=== PATIENT | female | born 1940 | race African-American/Black ===

== ENCOUNTER 2018-07-05 12:13 | Inpatient (IN) | payer MEDICARE ==
--- NOTE | 2018-07-05 12:45 | RAD ---
CHEST ONE VIEW: History: 77-year-old female with history of chest pain, dizziness, swelling, and headache. FINDINGS: Left ICD. Heart size is within upper range of normal limits to minimally enlarged. No confluent pneum onia, overt edema or pleural effusion. IMPRESSION: Left ICD. Minimal cardiomegaly without overt edema or confluent pneumonia. POS: T[facility]
[2018-07-05 13:17] LABS: #Basophils 0.1 thou/uL (0.0-0.2); #Eosinphils 0.2 thou/uL (0.0-0.7); #Lymphocytes 1.8 thou/uL (1.20-3.40); #Monocytes 0.4 thou/uL (0.11-0.59); #Neutrophils 3.8 thou/uL (1.40-6.50); %Basophils 1.1 % (0.0-1.0); %Eosinophils 3.4 % (0.0-10.0); %Lymphocytes 28.5 % (21.0-51.0); %Monocytes 6.6 % (0.0-10.0); %Neutrophils 60.5 % (42.0-75.0); Hemoglobin 12.7 g/dL (12.0-16.0); Mean Corpuscular HGB CONC 31.6 g/dL (32.0-36.0); Mean Corpuscular Hemoglobin 27.2 pg (27.0-31.0); Mean Corpuscular Volume 86.1 fL (78.0-98.0); Mean Platelet Volume 8.6 fL (7.4-10.4); Platelet Count 236 thou/uL (130-400); RBC Distribution Width 14.2 % (11.5-14.5); Red Blood Cell (RBC) Count 4.66 mill/uL (4.20-5.40); White Blood Cell (WBC) Count 6.3 thou/uL (4.8-10.8)
[2018-07-05 13:40] LABS: ALT (SGPT) 12 U/L (8-55); AST (SGOT) 16 U/L (5-34); Albumin 3.9 g/dL (3.4-4.8); Alkaline Phosphatase 84 U/L (40-150); Anion Gap 14 mmol/L (10-20); BUN (Urea Nitrogen) 22 mg/dL (9.8-20.1); Bilirubin, Total 0.8 mg/dL (0.2-1.2); CK (CPK) 97 U/L (29-168); Calc. Creatinine Clearance 0 mL/min (70-130); Calcium 9.4 mg/dL (7.8-10.44); Carbon Dioxide 25 mmol/L (23-31); Chloride 106 mmol/L (98-107); Estimated GFR-MDRD 50; Globulin 3.4 g/dL (2.4-3.5); Glucose 124 mg/dL (83-110); Potassium 4.5 mmol/L (3.5-5.1); Protein, Total 7.3 g/dL (6.0-8.3); Sodium 140 mmol/L (136-145)
[2018-07-05] MEDS ORDERED: Nitroglycerin 2% Ointment 1 INCH/1 GM Packet ONE (13:40)
[2018-07-05] MEDS ORDERED: Aspirin 325 MG TAB ONE (13:40)
[2018-07-05 13:45] LABS: CKMB 1.7 ng/mL (0-6.6); Troponin I Less than 0.010 ng/mL (< 0.028)
[2018-07-05 14:16] LABS: INR-International Normal Ratio 1.7; Prothrombin Time 20.1 SEC (12.0-14.7)
[2018-07-05 14:17] LABS: PTT 37.7 SEC (22.9-36.1)
[2018-07-05 16:39] LABS: Troponin I Less than 0.010 ng/mL (< 0.028)
--- NOTE | 2018-07-05 16:39 | HP ---
DATE OF ADMISSION: 07/05/2018 PRIMARY CARE PHYSICIAN: [facility] call admission. REASON FOR ADMISSION: Chest pain. HISTORY OF PRESENT ILLNESS: A 77-year-old female who has multiple medical problems including diabetes type 2, hypertension, chronic diastolic heart failure, paroxysmal atrial fibrillation treated with pacemaker as well as on chronic anticoagulation for previous history of deep venous thrombosis and pulmonary embolism. The patient presented to emergency room for evaluation of chest pain. The patient reports that recently she had an appointment for eye surgery. At that time, the patient had EKG done, which showed some abnormality and that is why her primary care physician advised to follow up with Cardiology. For the last couple of months, the patient has intermittently chest pain, which is pretty much vague. Based on her history, it is left sided in location, sometimes radiates to left arm, associated with shortness of breath, dizziness. She denies any vomiting, but she feels intermittently nausea. She also reports that her lower extremity is getting edema. She denies any calf tenderness. She denies any relation of chest pain with food, respiration or activity. Today in the emergency room, the patient had routine evaluation with a CBC, BMP , which was unremarkable. Cardiac enzymes were negative. EKG was nonspecific ST-T changes. The patient is being admitted for further evaluation. ALLERGIES: IODINE and IODINATED PRODUCT. CURRENT HOME MEDICATIONS: Lipitor 40 mg p.o. at bedtime, Zetia 10 mg p.o. daily , metoprolol tartrate 25 mg p.o. b.i.d., Lasix 40 mg p.o. daily, warfarin 7.5 mg p.o. daily, potassium chloride 20 mEq p.o. daily. PAST MEDICAL HISTORY: Coronary artery disease, diabetes type 2, dyslipidemia, hypertension, paroxysmal atrial fibrillation, pacemaker placement, chronic anticoagulation with warfarin, history of pulmonary embolism, history of DVT, obesity. PAST SURGICAL HISTORY: Left eye cataract surgery, bilateral feet surgery, cholecystectomy, hysterectomy, tonsillectomy, tubal ligation, pacemaker placement. PAST PSYCHIATRIC HISTORY: Reviewed and negative. SOCIAL HISTORY: The patient lives at home. She has caregiver at home. No history of tobacco, alcohol or illicit drug abuse. FAMILY HISTORY: No strong family history of premature coronary artery disease, stroke or cancer. ADDITIONAL INFORMATION: The patient reports that whenever the patient takes aspirin with warfarin, she had big problem in past. At that time, she required hospitalization at [facility] in [place] in 2013. EMERGENCY ROOM COURSE: The patient is given aspirin, nitropatch. REVIEW OF SYSTEMS: Please see my HPI for pertinent positive and negative. All other review of systems reviewed and negative except as mentioned in the HPI. Constitutional: Weight loss or gain, ability to conduct usual activities. Skin: Rash, itching. Eyes: Double vision, pain. ENT/Mouth: Nose bleeding, neck stiffness, pain, tenderness. Cardiovascular: Palpitations, dyspnea on exertion, orthopnea. Respiratory: Shortness of breath, wheezing, cough, hemoptysis, fever or night sweats. Gastrointestinal: Poor appetite, abdominal pain, heartburn, nausea, vomiting, constipation, or diarrhea. Genitourinary: Urgency, frequency, dysuria, nocturia. Musculoskeletal: Pain, swelling. Neurologic/Psychiatric: Anxiety, depression. Allergy/Immunologic: Skin rash, bleeding tendency. PHYSICAL EXAMINATION: VITAL SIGNS: On arrival, blood pressure 138/92, pulse 92, respiratory rate 18, temperature 97.0, saturation 98% on room air, weight 103.4 kilograms. GENERAL: The patient is currently alert, awake, in no obvious acute distress. HEAD: Normocephalic, atraumatic. EYES: Pupils round and reactive to light. Extraocular muscle intact. ENT: Oropharynx within normal limits. Moist mucous membranes. No oral lesion , no pharyngeal erythema, no exudate. NECK: Supple. No JVD, no thyromegaly, no carotid bruit, no jugular venous distention. LUNGS: Clear to auscultation without any rhonchi or rales. CARDIAC: S1, S2 appears regular. No murmur elicited, no gallop, no rub. ABDOMEN: Obesity present. Bowel sounds present, nontender, nondistended. No organomegaly, no mass, no suprapubic tenderness. BACK: Unremarkable. No CVA tenderness. EXTREMITIES: Upper extremities, passive movement of all joints are normal. Lower extremities, trace bilateral lower extremity pitting edema noted. Good distal pulsation. No calf tenderness. SKIN: No skin rash. HEMATOLOGICAL: No lymphadenopathy. PSYCHIATRIC: Normal affect. NEUROLOGIC: Nonfocal examination. SIGNIFICANT LABORATORY DATA: EKG showing pacemaker rhythm, nonspecific ST-T changes. Chest x-ray, cardiomegaly. No acute cardiopulmonary process. CBC, WBC 6.3, hemoglobin 12.7, platelet 236,000. INR 1.7. BMP, sodium 140, potassium 4.5, chloride 106, carbon dioxide 25, anion gap 14, BUN 22, creatinine 1.07, glucose 124, calcium 9.4. LFT, AST 16, ALT 12, alkaline phosphatase 84, albumin 3.9. CK is 97, CK-MB 1.7. Troponin I less than 0.010. BNP 149.2. ASSESSMENT AND PLAN: 1. Chest pain. The patient has underlying coronary artery disease. She has pacemaker rhythm. Her chest pain description is atypical. The patient will need more evaluation with serial cardiac enzymes x3. We will do pharmacological stress test tomorrow morning for diagnostic reason. Meanwhile, continue with nitropatch q.8 hourly. The patient does not want to continue aspirin along with warfarin therapy. We will monitor on telemetry floor. 2. Chronic diastolic heart failure. We will obtain echocardiography to assess ejection fraction and other structural abnormality. We will continue Lasix 40 mg p.o. daily and potassium chloride 20 mEq p.o. daily. 3. Paroxysmal atrial fibrillation treated with pacemaker as well as history of deep vein thrombosis and pulmonary embolism on chronic anticoagulation therapy. We will continue warfarin 7.5 mg p.o. daily and we will check PT/INR tomorrow. 4. Dyslipidemia. Continue Lipitor 40 mg p.o. at bedtime, Zetia 10 mg p.o. daily and check lipid profile tomorrow morning for risk stratification. 5. Diabetes type 2. Insulin as per sliding scale protocol. Diabetic diet will be given. 6. History of cataract with recent eye surgery. 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 Once she brings from her home, we will resume while in hospital. 7. Morbid obesity. Dietary education given. Weight loss education given. Healthy lifestyle measures discussed with the patient. 8. Deep venous thrombosis prophylaxis not needed because the patient is already on warfarin therapy. 9. Gastrointestinal prophylaxis. Pepcid 20 mg p.o. b.i.d. 10. Code status: The patient is full code. The patient does not have any surrogate decision maker. Disposition plan based on stress test result. Plan of care discussed with the patient in detail. MTDD
[2018-07-05] MEDS ORDERED: Mag-Al 1200 mg/1200 mg/30 ML UDCUP PO PRN (17:30)
[2018-07-05] MEDS ORDERED: Sodium Chloride 0.65% Nasal 44 ML BOT EA NARE PRN (17:30)
[2018-07-05] MEDS ORDERED: Artificial Tears 18 DROP/0.9 ML EA EYE PRN (17:30)
[2018-07-05] MEDS ORDERED: Senokot 8.6 MG TAB PO PRN (17:30)
[2018-07-05] MEDS ORDERED: Zolpidem Tartrate 5 MG TAB PO PRN (17:30)
[2018-07-05] MEDS ORDERED: Milk Of Magnesia 30 ML UDCUP PO PRN (17:30)
[2018-07-05] MEDS ORDERED: HYDROcodone/Acetaminophen 5/325 mg Tablet PO PRN (17:30)
[2018-07-05] MEDS ORDERED: Loperamide HCl 2 MG CAP PO PRN (17:30)
[2018-07-05] MEDS ORDERED: Ondansetron HCl/PF 4 MG/2 ML Vial IVP PRN (17:30)
[2018-07-05] MEDS ORDERED: Chloraseptic Spray 180 ml Bottle PO PRN (17:30)
[2018-07-05] MEDS ORDERED: Diabetic Tussin 200 MG/10 ML UDCUP PO PRN (17:30)
[2018-07-05] MEDS ORDERED: HumaLOG 300 UNITS/3 ML VIAL SC PRN ×2 (17:30)
[2018-07-05] MEDS ORDERED: Eucerin (Mineral Oil/Petrolatum,White) 30 gm Jar TOP PRN (17:30)
[2018-07-05] MEDS ORDERED: Loratadine 10 MG TAB PO PRN (17:30)
[2018-07-05] MEDS ORDERED: hydrALAZINE 20 MG/ML VIAL SLOW IVP PRN (17:30)
[2018-07-05] MEDS ORDERED: Dextrose 50% Abboject 50 ML SYRINGE SLOW IVP PRN (17:30)
[2018-07-05] MEDS ORDERED: Dextrose 5% in Water 1,000 ML IV PRN (17:30)
[2018-07-05] MEDS ORDERED: Ondansetron ODT 4 MG TAB PO PRN (17:30)
[2018-07-05] MEDS ORDERED: Nitroglycerin 0.4 MG TAB (25 Tab Bottle) SL PRN (17:30)
[2018-07-05 17:31] VITALS: BMI 38.2
[2018-07-05] MEDS ORDERED: Warfarin Sodium 7.5 MG TAB PO SCH (18:00)
[2018-07-05 19:33] LABS: Troponin I Less than 0.010 ng/mL (< 0.028)
[2018-07-05] MEDS: Atorvastatin Calcium 40 MG TAB PO SCH (21:41)
[2018-07-05] MEDS: Famotidine 20 MG TAB PO SCH (21:42)
[2018-07-05] MEDS: Nitroglycerin 2% Ointment 1 INCH/1 GM Packet TOP SCH (22:50)
[2018-07-06 01:08] LABS: Bilirubin Negative (Negative); Blood, Urine Negative (Negative); Clarity CLEAR (Clear); Glucose, Urine (Dipstick) Negative (Negative); Leukocyte Moderate (Negative); Nitrite Negative (Negative); Protein, Urine (Dipstick) Negative (Neg-Trace); Specific Gravity, Urine 1.013 (1.002-1.036); Urobilinogen 0.2 mg/dL (0.2-1.0)
[2018-07-06 01:11] LABS: Bacteria/HPF None Seen HPF (None Seen); Hyaline Casts/LPF 0-3 HYALINE CAST LPF (0-3 Hyaline); RBC/HPF 0-3 HPF (0-3); Squamous Epithelial 0-3 HPF (0-3)
[2018-07-06 06:07] LABS: INR-International Normal Ratio 1.7; Prothrombin Time 19.8 SEC (12.0-14.7)
[2018-07-06] MEDS: Nitroglycerin 2% Ointment 1 INCH/1 GM Packet TOP SCH ×3 (06:07→21:52)
[2018-07-06 06:24] LABS: Anion Gap 10 mmol/L (10-20); BUN (Urea Nitrogen) 18 mg/dL (9.8-20.1); Calc. Creatinine Clearance 93 mL/min (70-130); Calcium 9.2 mg/dL (7.8-10.44); Carbon Dioxide 23 mmol/L (23-31); Cardiac Risk 4.4 (Less than 4.5); Chloride 107 mmol/L (98-107); Cholesterol 164 mg/dl (< 200 Desired); Estimated GFR-MDRD 76; Glucose 115 mg/dL (83-110); HDL Cholesterol 37 mg/dL (>60 Neg Risk); LDL Cholesterol, Calculated 115 mg/dL; Potassium 4.1 mmol/L (3.5-5.1); Sodium 136 mmol/L (136-145); Triglycerides 61 mg/dL (Less than 150)
[2018-07-06] MEDS ORDERED: traMADol HCl 50 MG TAB PO PRN (08:25)
[2018-07-06] MEDS ORDERED: Aspirin 81 mg Enteric Coated Tablet PO SCH (08:30)
[2018-07-06] MEDS ORDERED: Ezetimibe 10 MG TAB PO SCH (09:00)
[2018-07-06] MEDS ORDERED: ICOSAPENT ETHYL PO SCH ×2 (09:00)
[2018-07-06 09:09] LABS: CKMB 1.4 ng/mL (0-6.6); Troponin I Less than 0.010 ng/mL (< 0.028)
[2018-07-06] MEDS ORDERED: Diazepam 5 MG TAB PO SCH (09:45)
--- NOTE | 2018-07-06 11:08 | CON ---
DATE OF CONSULTATION: 07/06/2018 REASON FOR CONSULTATION: Chest pain, history of atrial fibrillation, history of pulmonary embolism, history of pacemaker insertion. HISTORY OF PRESENT ILLNESS: Ms. Roche is a 77-year-old woman who came to the hospital complaining of chest pain. The patient's pain is atypical for angina in terms of being sharp and reproduced with palpation, but she also says it tends to build and come and go. She did have a severe episode of pa in this morning. It got better with nitroglycerin. The initial EKG showed ventricular paced rhythm. Follow up EKG shows T-wave inversion. The patient is not having anginal chest pain currently. Past history is very complicated. She said she had a large pulmonary embolism in 2012. She was at [facility] in [place]. She also had a heart catheterization, she said 6 years ago which showed no coronary disease. The patient is being maintained on Coumadin. ALLERGIES: Patient states she is allergic to IODINE. She cannot give me a lot of details, but she s aid she had some rash and itching and she thinks she is also short of breath, but she cannot recall a lot of details with the IODINE allergy. The patient has not been at this institution before. She h as received her cardiac in other health care elsewhere. MEDICATIONS: The medication at home included; 1. Coumadin. 2. Zetia. 3. Metoprolol. 4. Meclizine. REVIEW OF SYSTEMS: Constitutional: No significant weight gain or loss. She is extremely overweight . Vision: No changes. Hearing: No changes. Pulmonary: No cough or wheezing. Gastrointestinal: No nausea, vomiting, diarrhea. Skin: No rashes. Neurologic: No unilateral weakness or numbness. Psychiatric: No unusual depression or anxiety. Hematologic: No unusual bruising. Genitourinary: No burning with urination. SOCIAL HISTORY: No tobacco or alcohol. PAST MEDICAL HISTORY: 1. History of pacemaker insertion. 2. History of chronic atrial fibrillation. 3. History of pulmonary embolism, still on Coumadin. This patient is maintaining atrial fibrillatio n at the present time. PHYSICAL EXAMINATION: GENERAL: A pleasant patient in no distress. VITAL SIGNS: She is 5 foot 6 inches tall, 238 pounds, very obese, BMI is 38. HEENT: Eyes, sclerae nonicteric. Mouth mucous membranes moist. NECK: Supple, no lymphadenopathy. LUNGS: Clear. CARDIAC: Irregularly irregular. There is no murmur, rub or gallop. ABDOMEN: Obese, nontender, no hepatosplenomegaly. EXTREMITIES: Warm, dry, no clubbing, cyanosis. There is mild edema. LABORATORY AND X-RAY FINDINGS: The EKG showed initially a ventricular paced rhythm. Follow up EKG s hows T-wave inversions in anterior leads. ASSESSMENT: 1. Chest pain, some of it is clearly reproduced with palpation and is musculoskeletal, but she could have an anginal component. 2. History of pulmonary embolism. 3. Allergy to IODINE. 4. Morbid obesity, BMI is 38.6. PLAN: At this time, I think the most definitive test would be cardiac catheterization. I will ask o ne of my partners, Dr. Mcgraw to consider doing this from the radial would probably reduce complicati on risk in this patient with obesity and also anticoagulated. We will discuss risk further with the patient's stroke, heart attack, IODINE allergy, interfering of blood supply to the leg or kidney, tej nt thrombosis, stent restenosis. At the present time, it is the most judicious. Plan is to go ahead and premedicate for IODINE allergy. Hold Coumadin today and proceed tomorrow.
[2018-07-06] MEDS: Furosemide 40 MG TAB PO SCH (12:13)
[2018-07-06] MEDS: Famotidine 20 MG TAB PO SCH ×2 (12:13→20:30)
[2018-07-06] MEDS: Ezetimibe 10 MG TAB PO SCH (12:13)
[2018-07-06] MEDS: Potassium Chloride 20 MEQ TAB PO SCH (12:13)
[2018-07-06] MEDS: Metoprolol Tartrate 25 MG TAB PO SCH (12:13)
--- NOTE | 2018-07-06 14:13 | PDOC.PN ---
- Subjective Encounter Start Date: 07/06/18 Encounter Start Time: 14:12 Subjective: c/o 10/10 Chest pain this morning.releived w Nitro -: denies any SOB -: pain going under left breast - Objective Resuscitation Status: Resuscitation Status FULL:Full Resuscitation MAR Reviewed: Yes Vital Signs & Weight: Vital Signs (12 hours) Temp Pulse Resp BP Pulse Ox 07/06/18 11:16 97.8 F 72 20 135/66 100 07/06/18 07:35 98.5 F 83 20 123/57 L 98 07/06/18 04:44 98.2 F 78 12 135/75 99 Weight Weight 238 lb 14.4 oz I&O: 07/05/18 07/06/18 07/07/18 06:59 06:59 06:59 Intake Total 720 Balance 720 Result Diagrams: 07/05/18 13:09 07/06/18 05:35 Additional Labs: Accuchecks 07/06/18 07/05/18 07/05/18 11:19 21:20 17:36 POC Glucose 127 H 108 119 H Phys Exam - Physical Examination Constitutional: NAD HEENT: PERRLA, moist MMs, sclera anicteric, oral pharynx no lesions Neck: no nodes, no JVD, supple, full ROM Respiratory: no wheezing, no rales, no rhonchi, clear to auscultation bilateral Cardiovascular: RRR, no significant murmur, no rub Gastrointestinal: soft, non-tender, no distention, positive bowel sounds Musculoskeletal: no edema, pulses present reproducible pain under sternum Neurological: non-focal, normal sensation, moves all 4 limbs Psychiatric: normal affect, A&O x 3 Skin: no rash Dx/Plan (1) Chest pain Code(s): R07.9 - CHEST PAIN, UNSPECIFIED Status: Acute (2) CAD (coronary artery disease) Code(s): I25.10 - ATHSCL HEART DISEASE OF [place] CORONARY ARTERY W/O ANG PCTRS Status: Chronic (3) DM2 (diabetes mellitus, type 2) Status: Chronic (4) HTN (hypertension) Code(s): I10 - ESSENTIAL (PRIMARY) HYPERTENSION Status: Chronic (5) HLD (hyperlipidemia) Code(s): E78.5 - HYPERLIPIDEMIA, UNSPECIFIED Status: Chronic (6) Paroxysmal atrial fibrillation Code(s): I48.0 - PAROXYSMAL ATRIAL FIBRILLATION Status: Chronic Comment: NSR now - Plan out of bed/ambulate, DVT proph w/SCDs atypial chest pain but w multiple risk factores -: discussed w cardiology=-appreciate input.cath tomorrow after prep -: hemodynamically stable. cancel stress test.ECHo to be done -: ASA .pt educated. start low dose BB as well.change coumadin to PM dose -: Change to Inpt w suspected Angina * . Review of Systems - Review of Systems Constitutional: negative: fever, chills, sweats, weakness, malaise, other ENT: negative: Ear Pain, Ear Discharge, Nose Pain, Nose Discharge, Nose Congestion, Mouth Pain, Mouth Swelling, Throat Pain, Throat Swelling, Other Respiratory: negative: Cough, Dry, Shortness of Breath, Hemoptysis, SOB with Excertion, Pleuritic Pain, Sputum, Wheezing Cardiovascular: chest pain. negative: palpitations, orthopnea, paroxysmal nocturnal dyspnea, edema, light headedness, other Gastrointestinal: negative: Nausea, Vomiting, Abdominal Pain, Diarrhea, Constipation, Melena, Hematochezia, Other Genitourinary: negative: Dysuria, Frequency, Incontinence, Hematuria, Retention , Other Musculoskeletal: negative: Neck Pain, Shoulder Pain, Arm Pain, Back Pain, Hand Pain, Leg Pain, Foot Pain, Other Skin: negative: Rash, Lesions, Tom, Bruising, Other Neurological: negative: Weakness, Numbness, Incoordination, Change in Speech, Confusion, Seizures, Other - Medications/Allergies Allergies/Adverse Reactions: Allergies Allergy/AdvReac Type Severity Reaction Status Date / Time iodine Allergy Verified 07/05/18 17:30 Medications: Current Medications Acetaminophen (Tylenol) 650 mg PO Q4H PRN PRN Reason: Headache/Fever or Pain Hydrocodone Bitart/Acetaminophen ([place] 5/325) 1 tab PO Q4H PRN PRN Reason: Moderate Pain (4-6) Al Hydroxide/Mg Hydroxide (Maalox) 30 ml PO Q6H PRN PRN Reason: Heartburn or Indigestion Artificial Tears (Tears Naturale) 0 drop EA EYE PRN PRN PRN Reason: Dry Eyes Atorvastatin Calcium (Lipitor) 40 mg PO HS [facility] Last Admin: 07/05/18 21:41 Dose: Not Given Cyanocobalamin (Vitamin B-12) 1,000 mcg PO QPM [facility] Dextrose/Water (Dextrose 50%) 25 gm SLOW IVP PRN PRN PRN Reason: Hypoglycemia Diazepam (Valium) 5 mg PO ONE [facility] Stop: 07/06/18 21:00 Ezetimibe (Zetia) 10 mg PO DAILY [facility] Last Admin: 07/06/18 12:13 Dose: Not Given Famotidine (Pepcid) 20 mg PO BID [facility] Last Admin: 07/06/18 12:13 Dose: Not Given Folic Acid (Folvite) 1 mg PO QPM [facility] Furosemide (Lasix) 40 mg PO DAILY-AC [facility] Last Admin: 07/06/18 12:13 Dose: Not Given Glucagon (Glucagon) 1 mg IM PRN PRN PRN Reason: Hypoglycemia Guaifenesin (Robitussin Sf) 200 mg PO Q4H PRN PRN Reason: Cough Hydralazine HCl (Apresoline) 10 mg SLOW IVP Q4H PRN PRN Reason: Systolic BP > 180 Dextrose/Water (D5w) 1,000 mls @ 0 mls/hr IV .Q0M PRN PRN Reason: Hypoglycemia Sodium Chloride (Normal Saline 0.9%) 1,000 mls @ 100 mls/hr IV .Q10H [facility] Insulin Human Lispro (Humalog) 0 units SC .MODERATE SLIDING SC PRN PRN Reason: Moderate Correctional Scale Insulin Human Lispro (Humalog) 0 units SC .BEDTIME SLIDING SC PRN PRN Reason: Bedtime [place]al Scale Loperamide HCl (Imodium) 2 mg PO PRN PRN PRN Reason: Diarrhea/Loose Stools Loratadine (Claritin) 10 mg PO DAILYPRN PRN PRN Reason: Sinus Symptoms Magnesium Hydroxide (Milk Of Magnesium) 30 ml PO DAILYPRN PRN PRN Reason: Constipation Meclizine HCl (Antivert) 25 mg PO HS [facility] Metoprolol Tartrate (Lopressor) 12.5 mg PO DAILY [facility] Last Admin: 07/06/18 12:13 Dose: Not Given Mineral Oil/White Petrolatum (Eucerin Cream) 0 gm TOP BIDPRN PRN PRN Reason: Dry Skin Miscellaneous Information (Communication Order-Pharmacy) 0 each FS ASDIR [facility] Nitroglycerin (Nitrostat) 0.4 mg SL Q5MIN PRN PRN Reason: Chest Pain Last Admin: 07/06/18 08:18 Dose: 0.4 mg Nitroglycerin (Nitro-Bid 2% Ointment) 0.5 inch TOP Q8HR [facility] Last Admin: 07/06/18 06:07 Dose: Not Given Ondansetron HCl (Zofran Odt) 4 mg PO Q6H PRN PRN Reason: Nausea/Vomiting Ondansetron HCl (Zofran) 4 mg IVP Q6H PRN PRN Reason: Nausea/Vomiting Icosapent Ethyl [ (Vascepa] 3 Gm) 0 each PO DAILY [facility] Febuxostat [Uloric] (40 Mg) 0 each PO HS [facility] Phenol (Chloraseptic [place] 180 Ml Bot) 0 ml PO PRN PRN PRN Reason: Sore Throat Potassium Chloride (K-Dur) 20 meq PO QAM-WM [facility] Last Admin: 07/06/18 12:13 Dose: Not Given Potassium Chloride (Klor-Con 10) 10 meq PO QPM [facility] Senna (Senokot) 2 tab PO HSPRN PRN PRN Reason: Constipation Sodium Chloride ([place] Nasal [place] 0.65%) 0 ml EA NARE QIDPRN PRN PRN Reason: Nasal Congestion Sodium Chloride (Flush - Normal Saline) 10 ml IVF Q12HR [facility] Last Admin: 07/06/18 12:13 Dose: Not Given Sodium Chloride (Flush - Normal Saline) 10 ml IVF PRN PRN PRN Reason: Saline Flush Tramadol HCl (Ultram) 50 mg PO Q6H PRN PRN Reason: Pain Vitamin E (Vitamin E) 400 units PO QPM [facility] Zolpidem Tartrate (Ambien) 5 mg PO HSPRN PRN PRN Reason: Insomnia
--- NOTE | 2018-07-06 15:23 | EKG ---
Test Reason : Blood Pressure : / mmHG Vent. Rate : 084 BPM Atrial Rate : 101 BPM P-R Int : 000 ms QRS Dur : 092 ms QT Int : 398 ms P-R-T Axes : 000 034 -18 degrees QTc Int : 470 ms Demand pacemaker; interpretation is based on intrinsic rhythm Atrial fibrillation with premature ventricular or aberrantly conducted complexes Prolonged QT Abnormal ECG When compared with ECG of 05-JUL-2018 12:35, (Unconfirmed) Atrial fibrillation has replaced Electronic ventricular pacemaker Confirmed by JOIE BELTRÁN, SErlinda ([id number]) on 07/06/2018 3:23:39 PM Referred By: YNES Confirmed By:DR. Christine SALTER MD
[2018-07-06] MEDS ORDERED: Warfarin Sodium 7.5 MG TAB PO SCH (17:00)
[2018-07-06] MEDS ORDERED: Famotidine 20 MG TAB PO SCH (18:15)
[2018-07-06] MEDS ORDERED: diphenhydrAMINE 50 MG/ML VIAL IVP SCH (18:15)
[2018-07-06] MEDS: predniSONE 20 MG TAB PO SCH ×2 (18:22→23:54)
[2018-07-06] MEDS: Atorvastatin Calcium 40 MG TAB PO SCH (20:28)
[2018-07-06] MEDS: Cyanocobalamin (Vitamin B-12) 1,000 MCG TAB PO SCH (20:29)
[2018-07-06] MEDS: Meclizine HCl 25 MG TAB PO SCH (20:35)
[2018-07-06] MEDS: Folic Acid 1 MG TAB PO SCH (20:35)
[2018-07-06] MEDS: Acetaminophen 325 MG TAB PO PRN (20:36)
[2018-07-06] MEDS: Vitami E (Dl,Tocopheryl Acet) 400 UNITS CAP PO SCH (20:36)
[2018-07-06] MEDS ORDERED: Non-Formulary Item 1 EACH (Folic Acid [Folic Acid] 0.8 MG) PO SCH (21:00)
[2018-07-06] MEDS ORDERED: VITAMIN E ACETATE 400 UNIT PO SCH (21:00)
[2018-07-06] MEDS ORDERED: Potassium Chloride 10 MEQ TAB PO SCH (21:00)
[2018-07-06] MEDS ORDERED: FEBUXOSTAT 40 MG PO SCH (21:00)
[2018-07-07] MEDS: Metoprolol Tartrate 25 MG TAB PO SCH (05:15)
[2018-07-07] MEDS: Acetaminophen 325 MG TAB PO PRN ×2 (05:15→20:50)
[2018-07-07] MEDS: Nitroglycerin 2% Ointment 1 INCH/1 GM Packet TOP SCH ×2 (05:17→15:47)
[2018-07-07] MEDS: predniSONE 20 MG TAB PO SCH ×2 (05:18→12:59)
[2018-07-07] MEDS: Ezetimibe 10 MG TAB PO SCH (05:19)
[2018-07-07] MEDS: Potassium Chloride 20 MEQ TAB PO SCH (05:19)
[2018-07-07] MEDS ORDERED: Communication Order-Pharmacy FS SCH (06:00)
[2018-07-07] MEDS ORDERED: Sodium Chloride 0.9% 1,000 ML IV SCH ×2 (06:00→11:15)
[2018-07-07] MEDS ORDERED: WARFARIN PO PRN (09:23)
[2018-07-07] MEDS ORDERED: Lidocaine 1% (PF) 30 ML VIAL ONE (09:50)
[2018-07-07] MEDS ORDERED: Nitroglycerin 100MG/250ML BOT 250 ML ONE (09:50)
[2018-07-07] MEDS ORDERED: Heparin 10,000 UNITS/1 ML VIAL ONE (09:51)
[2018-07-07] MEDS ORDERED: Verapamil 5 MG/2 ML VIAL ONE (09:52)
[2018-07-07] MEDS ORDERED: Midazolam HCl 2 mg/2 ml Vial ONE (09:52)
[2018-07-07] MEDS ORDERED: Fentanyl 100 MCG/2 ML VIAL ONE (09:52)
[2018-07-07] MEDS ORDERED: Iopamidol 370 76% 100 ML VIAL ONE (10:23)
[2018-07-07] MEDS ORDERED: Acetaminophen/Codeine 30-300mg Tablet PO PRN (11:04)
[2018-07-07] MEDS ORDERED: Sodium Chloride 0.9% 200 ML IV SCH (11:15)
[2018-07-07] MEDS: Famotidine 20 MG TAB PO SCH ×2 (11:40→20:27)
[2018-07-07] MEDS ORDERED: Furosemide 40 MG/4 ML VIAL SLOW IVP SCH (12:30)
[2018-07-07] MEDS: Furosemide 40 MG TAB PO SCH (12:32)
[2018-07-07] MEDS ORDERED: Nitrofurantoin Macrocrystal 50 MG CAP PO SCH (13:00)
[2018-07-07] MEDS: Febuxostat [Uloric] 40 MG PO SCH ×2 (13:10→20:34)
--- NOTE | 2018-07-07 14:52 | RAD ---
CHEST ONE VIEW: History: CHF. Comparison: 07-07-18 FINDINGS: Cardiac silhouette is magnified and enlarged. Pulmonary vasculature more engorged than on the prior s tudy. Mediastinum is midline with a dual-lead left subclavian cardiac electronic device. Mild patchy bibasilar infiltrates. IMPRESSION: Cardiomegaly. Pulmonary vascular congestion. Clinical correlation regarding other signs and symptoms of CHF is required. POS: [facility]
--- NOTE | 2018-07-07 14:56 | PDOC.PN ---
- Subjective Encounter Start Date: 07/07/18 Encounter Start Time: 14:55 Subjective: feels well. no new complaints - Objective Resuscitation Status: Resuscitation Status FULL:Full Resuscitation MAR Reviewed: Yes Vital Signs & Weight: Vital Signs (12 hours) Temp Pulse Resp BP Pulse Ox 07/07/18 12:00 98 07/07/18 11:04 74 16 07/07/18 08:06 97.7 F 73 16 143/87 H 96 07/07/18 08:00 96 07/07/18 03:40 97.7 F 80 16 161/86 H 97 Weight Weight 238 lb 14.4 oz I&O: 07/06/18 07/07/18 07/08/18 06:59 06:59 06:59 Intake Total 720 480 Balance 720 480 Result Diagrams: 07/05/18 13:09 07/06/18 05:35 Additional Labs: Accuchecks 07/07/18 07/07/18 07/06/18 11:32 05:34 20:09 POC Glucose 206 H 183 H 116 H 07/06/18 17:36 POC Glucose 100 Radiology Reviewed by me: Yes (ECHO-EF 55%,severe TR.mod MR) Phys Exam - Physical Examination Constitutional: NAD HEENT: PERRLA, moist MMs, sclera anicteric, oral pharynx no lesions Neck: no nodes, no JVD, supple, full ROM Respiratory: no wheezing, no rales, no rhonchi, clear to auscultation bilateral Cardiovascular: RRR, no significant murmur, no rub Gastrointestinal: soft, non-tender, no distention, positive bowel sounds Musculoskeletal: no edema, pulses present Neurological: non-focal, normal sensation, moves all 4 limbs Psychiatric: normal affect, A&O x 3 Skin: no rash Dx/Plan (1) Chest pain Code(s): R07.9 - CHEST PAIN, UNSPECIFIED Status: Acute (2) UTI (urinary tract infection) Status: Acute (3) CAD (coronary artery disease) Code(s): I25.10 - ATHSCL HEART DISEASE OF [place] CORONARY ARTERY W/O ANG PCTRS Status: Chronic (4) DM2 (diabetes mellitus, type 2) Status: Chronic (5) HTN (hypertension) Code(s): I10 - ESSENTIAL (PRIMARY) HYPERTENSION Status: Chronic (6) HLD (hyperlipidemia) Code(s): E78.5 - HYPERLIPIDEMIA, UNSPECIFIED Status: Chronic (7) Paroxysmal atrial fibrillation Code(s): I48.0 - PAROXYSMAL ATRIAL FIBRILLATION Status: Chronic Comment: NSR now - Plan PT/OT, respiratory therapy, incentive spirometry, out of bed/ambulate, DVT proph w/SCDs cardiac Cath today after prep for iodine allergy.hemodynamically stable -: Add macrodantin for early UTI.send urine culture -: OT/PT.Rehab Vs HH.Pt very reluctant to choose either.would rather stay inpt -: Restart warfarin after Cath.on low dose ASA. * . Review of Systems - Review of Systems Constitutional: negative: fever, chills, sweats, weakness, malaise, other ENT: negative: Ear Pain, Ear Discharge, Nose Pain, Nose Discharge, Nose Congestion, Mouth Pain, Mouth Swelling, Throat Pain, Throat Swelling, Other Respiratory: negative: Cough, Dry, Shortness of Breath, Hemoptysis, SOB with Excertion, Pleuritic Pain, Sputum, Wheezing Cardiovascular: negative: chest pain, palpitations, orthopnea, paroxysmal nocturnal dyspnea, edema, light headedness, other Gastrointestinal: negative: Nausea, Vomiting, Abdominal Pain, Diarrhea, Constipation, Melena, Hematochezia, Other Genitourinary: negative: Dysuria, Frequency, Incontinence, Hematuria, Retention , Other Musculoskeletal: negative: Neck Pain, Shoulder Pain, Arm Pain, Back Pain, Hand Pain, Leg Pain, Foot Pain, Other Neurological: negative: Weakness, Numbness, Incoordination, Change in Speech, Confusion, Seizures, Other - Medications/Allergies Allergies/Adverse Reactions: Allergies Allergy/AdvReac Type Severity Reaction Status Date / Time iodine Allergy Verified 07/05/18 17:30 Medications: Current Medications Acetaminophen (Tylenol) 650 mg PO Q4H PRN PRN Reason: Headache/Fever or Pain Last Admin: 07/07/18 05:15 Dose: 650 mg Acetaminophen/Codeine Phosphate (Tylenol #3) 1 tab PO Q4H PRN PRN Reason: Mild Pain (1-3) Hydrocodone Bitart/Acetaminophen ([place] 5/325) 1 tab PO Q4H PRN PRN Reason: Moderate Pain (4-6) Al Hydroxide/Mg Hydroxide (Maalox) 30 ml PO Q6H PRN PRN Reason: Heartburn or Indigestion Artificial Tears (Tears Naturale) 0 drop EA EYE PRN PRN PRN Reason: Dry Eyes Atorvastatin Calcium (Lipitor) 40 mg PO HS [facility] Last Admin: 07/06/18 20:28 Dose: Not Given Cyanocobalamin (Vitamin B-12) 1,000 mcg PO QPM [facility] Last Admin: 07/06/18 20:29 Dose: 1,000 mcg Dextrose/Water (Dextrose 50%) 25 gm SLOW IVP PRN PRN PRN Reason: Hypoglycemia Diphenhydramine HCl (Benadryl) 50 mg IVP ONCALL-OR [facility] Last Admin: 07/07/18 10:16 Dose: 50 mg Ezetimibe (Zetia) 10 mg PO DAILY [facility] Last Admin: 07/07/18 05:19 Dose: 10 mg Famotidine (Pepcid) 20 mg PO BID [facility] Last Admin: 07/07/18 11:40 Dose: Not Given Famotidine (Pepcid) 40 mg PO ONCALL-OR [facility] Last Admin: 07/07/18 10:16 Dose: 40 mg Folic Acid (Folvite) 1 mg PO QPM [facility] Last Admin: 07/06/18 20:35 Dose: 1 mg Glucagon (Glucagon) 1 mg IM PRN PRN PRN Reason: Hypoglycemia Guaifenesin (Robitussin Sf) 200 mg PO Q4H PRN PRN Reason: Cough Hydralazine HCl (Apresoline) 10 mg SLOW IVP Q4H PRN PRN Reason: Systolic BP > 180 Dextrose/Water (D5w) 1,000 mls @ 0 mls/hr IV .Q0M PRN PRN Reason: Hypoglycemia Sodium Chloride (Normal Saline 0.9%) 200 mls @ 0 mls/hr IV ONE [facility] Stop: 07/08/18 11:16 Sodium Chloride (Normal Saline 0.9%) 1,000 mls @ 100 mls/hr IV .Q10H [facility] Last Admin: 07/07/18 12:31 Dose: Not Given Insulin Human Lispro (Humalog) 0 units SC .MODERATE SLIDING SC PRN PRN Reason: Moderate Correctional Scale Insulin Human Lispro (Humalog) 0 units SC .BEDTIME SLIDING SC PRN PRN Reason: Bedtime Correctional Scale Loperamide HCl (Imodium) 2 mg PO PRN PRN PRN Reason: Diarrhea/Loose Stools Loratadine (Claritin) 10 mg PO DAILYPRN PRN PRN Reason: Sinus Symptoms Magnesium Hydroxide (Milk Of Magnesium) 30 ml PO DAILYPRN PRN PRN Reason: Constipation Meclizine HCl (Antivert) 25 mg PO [facility] Last Admin: 07/06/18 20:35 Dose: 25 mg Metoprolol Tartrate (Lopressor) 12.5 mg PO DAILY [facility] Last Admin: 07/07/18 05:15 Dose: 12.5 mg Mineral Oil/White Petrolatum (Eucerin Cream) 0 gm TOP BIDPRN PRN PRN Reason: Dry Skin Miscellaneous Information (Communication Order-Pharmacy) 0 each FS ASDIR [facility] Miscellaneous Medication (Pharmacy To Dose) 0 each PO DAILYPRN PRN PRN Reason: LABS Nitrofurantoin Macrocrystals (Macrodantin) 50 mg PO QID [facility] Last Admin: 07/07/18 13:45 Dose: 50 mg Nitroglycerin (Nitrostat) 0.4 mg SL Q5MIN PRN PRN Reason: Chest Pain Last Admin: 07/06/18 08:18 Dose: 0.4 mg Nitroglycerin (Nitro-Bid 2% Ointment) 0.5 inch TOP Q8HR [facility] Last Admin: 07/07/18 05:17 Dose: Not Given Ondansetron HCl (Zofran Odt) 4 mg PO Q6H PRN PRN Reason: Nausea/Vomiting Ondansetron HCl (Zofran) 4 mg IVP Q6H PRN PRN Reason: Nausea/Vomiting Icosapent Ethyl [ (Vascepa] 3 Gm) 0 each PO DAILY [facility] Febuxostat [Uloric] (40 Mg) 0 each PO [facility] Last Admin: 07/07/18 13:10 Dose: Not Given Phenol (Chloraseptic Prentiss 180 Ml Bot) 0 ml PO PRN PRN PRN Reason: Sore Throat Potassium Chloride (K-Dur) 20 meq PO QAM-WM [facility] Last Admin: 07/07/18 05:19 Dose: 20 meq Potassium Chloride (Klor-Con 10) 10 meq PO QPM [facility] Last Admin: 07/06/18 20:35 Dose: 10 meq Senna (Senokot) 2 tab PO HSPRN PRN PRN Reason: Constipation Sodium Chloride ([place] Nasal Prentiss 0.65%) 0 ml EA NARE QIDPRN PRN PRN Reason: Nasal Congestion Sodium Chloride (Flush - Normal Saline) 10 ml IVF Q12HR [facility] Last Admin: 07/07/18 11:40 Dose: Not Given Sodium Chloride (Flush - Normal Saline) 10 ml IVF PRN PRN PRN Reason: Saline Flush Tramadol HCl (Ultram) 50 mg PO Q6H PRN PRN Reason: Pain Vitamin E (Vitamin E) 400 units PO QPM [facility] Last Admin: 07/06/18 20:36 Dose: 400 units Warfarin Sodium (Coumadin) 5 mg PO MoWeFr [facility] Warfarin Sodium (Coumadin) 7.5 mg PO SuTuThSa [facility] Zolpidem Tartrate (Ambien) 5 mg PO HSPRN PRN PRN Reason: Insomnia
[2018-07-07] MEDS ORDERED: Warfarin Sodium 5 MG TAB PO SCH (17:00)
[2018-07-07 17:28] LABS: Hemoglobin 14.1 g/dL (12.0-16.0); Platelet Count 271 thou/uL (130-400)
--- NOTE | 2018-07-07 17:33 | PRG ---
DATE OF SERVICE: 07/07/2018 SUBJECTIVE: Ms. Roche was short of breath after cardiac catheterization. She is also wheezing. OBJECTIVE: VITAL SIGNS: Blood pressure 143/87, pulse 70 and irregular. LUNGS: Clear. CARDIAC: Irregularly irregular. ABDOMEN: Soft, nontender. EXTREMITIES: No edema. ASSESSMENT: 1. Normal coronary arteries. 2. Noncardiac chest pain. 3. Diastolic heart failure with ejection fraction 50%-55%. PLAN: 1. She received intravenous furosemide. 2. Resume Coumadin. 3. Ready to go home tomorrow.
[2018-07-07] MEDS ORDERED: Potassium Chloride 20 MEQ TAB PO SCH (20:00)
[2018-07-07] MEDS: Furosemide 40 MG/4 ML VIAL SLOW IVP SCH ×2 (20:23→20:38)
[2018-07-07] MEDS: Folic Acid 1 MG TAB PO SCH (20:25)
[2018-07-07] MEDS: Nitrofurantoin Monohyd/M-Cryst 100 MG CAP PO SCH (20:26)
[2018-07-07] MEDS: Vitami E (Dl,Tocopheryl Acet) 400 UNITS CAP PO SCH (20:26)
[2018-07-07] MEDS: Cyanocobalamin (Vitamin B-12) 1,000 MCG TAB PO SCH (20:27)
[2018-07-07] MEDS: Meclizine HCl 25 MG TAB PO SCH (20:28)
[2018-07-07] MEDS: Atorvastatin Calcium 40 MG TAB PO SCH (20:30)
[2018-07-08 01:24] LABS: Anion Gap 12 mmol/L (10-20); BUN (Urea Nitrogen) 20 mg/dL (9.8-20.1); Calc. Creatinine Clearance 77 mL/min (70-130); Calcium 9.5 mg/dL (7.8-10.44); Carbon Dioxide 25 mmol/L (23-31); Chloride 104 mmol/L (98-107); Estimated GFR-MDRD 60; Glucose 201 mg/dL (83-110); Potassium 4.5 mmol/L (3.5-5.1); Sodium 136 mmol/L (136-145)
[2018-07-08 05:26] LABS: INR-International Normal Ratio 1.5
[2018-07-08 05:41] LABS: Anion Gap 12 mmol/L (10-20); BUN (Urea Nitrogen) 20 mg/dL (9.8-20.1); Calc. Creatinine Clearance 73 mL/min (70-130); Calcium 9.3 mg/dL (7.8-10.44); Carbon Dioxide 25 mmol/L (23-31); Chloride 103 mmol/L (98-107); Estimated GFR-MDRD 58; Glucose 210 mg/dL (83-110); Potassium 4.1 mmol/L (3.5-5.1); Sodium 136 mmol/L (136-145)
[2018-07-08] MEDS ORDERED: Lisinopril 5 MG TAB PO SCH (09:00)
[2018-07-08] MEDS: Potassium Chloride 20 MEQ TAB PO SCH (10:27)
[2018-07-08] MEDS: Famotidine 20 MG TAB PO SCH (10:27)
[2018-07-08] MEDS: Metoprolol Tartrate 25 MG TAB PO SCH (10:27)
[2018-07-08] MEDS: Ezetimibe 10 MG TAB PO SCH (10:27)
[2018-07-08] MEDS: Nitrofurantoin Monohyd/M-Cryst 100 MG CAP PO SCH (10:28)
[2018-07-08 12:02] VITALS: BP 120/89; TEMP 97.9
--- NOTE | 2018-07-08 15:01 | EKG ---
Test Reason : Blood Pressure : / mmHG Vent. Rate : 078 BPM Atrial Rate : 072 BPM P-R Int : 000 ms QRS Dur : 096 ms QT Int : 392 ms P-R-T Axes : 000 000 -35 degrees QTc Int : 446 ms Atrial paced Inferior infarct , age undetermined Cannot rule out Anterior infarct , age undetermined Abnormal ECG Confirmed by TERRENCE BELTRÁN, PHIL Connolly ([id number]), editor managing newspaper JARAD CHONG ([id number]) on 07/08/2018 3:01:25 PM Referred By: Confirmed By:PHIL OCAMPO MD
[2018-07-08] MEDS ORDERED: Warfarin Sodium 7.5 MG TAB PO SCH ×2 (17:00)
--- NOTE | 2018-07-08 18:28 | DIS ---
DATE OF ADMISSION: 07/06/2018 DATE OF DISCHARGE: 07/08/2018 CONDITION AT THE TIME OF DISCHARGE: Stable and improved. PRIMARY CARE PHYSICIAN: Talha Salazar. DISCHARGE DIAGNOSES: 1. Chest pain, noncardiac, acute coronary syndrome ruled out. 2. Hypertension. 3. Chronic diastolic congestive heart failure with ejection fraction of 50% to 55%. 4. Urinary tract infection. 5. History of coronary artery disease. 6. Diabetes mellitus type 2 on oral hypoglycemics. 7. Hypertension. 8. Dyslipidemia. 9. History of paroxysmal atrial fibrillation on chronic warfarin. DISCHARGE MEDICATIONS: Resume home medications as per HPI. New medication, lisinopril 5 mg daily, M acrobid 100 mg p.o. b.i.d. for 5 more days. Please see admission H and P for further details regardi ng her home medications. No changes were made. PROCEDURES DONE IN THE HOSPITAL: 1. Transthoracic echocardiogram on 07/06/2018 which shows atrial fibrillation, enlarged right ventri cular cavity, moderate to severe tricuspid regurgitation, moderately elevated pulmonary artery pressu re, EF of 50%-55%. 2. Cardiac catheterization which shows normal coronaries on 07/07/2018. INHOUSE CONSULTATION: Cardiology, Dr. De La Cruz. HISTORY OF PRESENTING ILLNESS: Ms. Roche is a 77-year-old female with known history of coronary ar fredrick disease, DVT and chronic atrial fibrillation on chronic anticoagulation as well as diabetes, hyp ertension who presented to the emergency room with complaints of chest pain. EKG had some T-wave inv ersions, so she was admitted for further workup. Cardiac enzymes were negative. Please see admissio n history and physical for further detail. The patient was hemodynamically stable. HOSPITAL COURSE: Cardiac enzyme remained negative throughout hospitalization. BNP was normal. The patient had 1 more episode of sharp, crushing chest pain and given her history of coronary artery dis ease, Cardiology was consulted. They recommended cardiac catheterization which was done and it was f ound to be unremarkable. Echocardiogram showed chronic changes and chronic diastolic congestive hear t failure with mild pulmonary arterial hypertension. The patient remained hemodynamically stable throughout the rest of her hospitalization without any mo re episodes of chest pain. Urinalysis was done which suggested a UTI, so she was started on Macrobid . Urine culture was sent, but is pending at the time of discharge. The patient is asymptomatic. Re habilitation option was given to the patient, but she declined it. Also given option of home health which she again declined. Pharmacy managed the warfarin while in the hospital. She will resume home dosages as before. INR on the day of discharge 1.5. 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 She was seen and examined prior to discharge. PHYSICAL EXAMINATION: VITAL SIGNS: This morning, temperature 97.9, pulse of 77, blood pressure 120/89, respirations 18, sa turating 98% on room air. GENERAL: No acute distress, awake, alert, oriented x3. CHEST: Clear to auscultation bilaterally without any wheezing, rales or rhonchi. Rhythm is regular without any murmur, rubs or gallops. LABORATORY DATA: CBC unremarkable. Serum chemistries unremarkable. Lipid panel within normal limit s. BNP 149. Her serial cardiac enzymes within normal limit. Urine culture pending at the time of d ischarge. Total time spent in the discharge of this patient 35 minutes.
== END 2018-07-08 12:25 | disposition home or self-care (01) | DRG 287 ==
LOC: ERS 12:13 → 2SW 15:29 → OBSVTOIN 07-06 12:21 → 2NO 07-06 16:07
PROVIDERS: ADMIT Internal Medicine; ATTEND Internal Medicine
PROC: 4A023N7 Measurement of Cardiac Sampling and Pressure, Left Heart, Percutaneous Approach (ICD-10-PCS; principal; 2018-07-07)
PROC: B2111ZZ Fluoroscopy of Multiple Coronary Arteries using Low Osmolar Contrast (ICD-10-PCS; 2018-07-07)
DX: R07.89 Other chest pain (principal); I50.32 Chronic diastolic (congestive) heart failure; N39.0 Urinary tract infection, site not specified; I11.0 Hypertensive heart disease with heart failure; I07.1 Rheumatic tricuspid insufficiency; R94.31 Abnormal electrocardiogram [ECG] [EKG]; I25.10 Atherosclerotic heart disease of native coronary artery without angina pectoris; I48.0 Paroxysmal atrial fibrillation; E11.9 Type 2 diabetes mellitus without complications; E66.01 Morbid (severe) obesity due to excess calories; E78.5 Hyperlipidemia, unspecified; I27.20 Pulmonary hypertension, unspecified; Z95.0 Presence of cardiac pacemaker; Z68.38 Body mass index [BMI] 38.0-38.9, adult; Z79.01 Long term (current) use of anticoagulants; Z88.8 Allergy status to other drugs, medicaments and biological substances; Z86.711 Personal history of pulmonary embolism; Z86.718 Personal history of other venous thrombosis and embolism; Z79.84 Long term (current) use of oral hypoglycemic drugs
CPT/HCPCS: 36415; 36416; 71045; 80048; 80053; 80061; 81001; 82553; 83735; 83880; 84484; 85014; 85018; 85025; 85049; 85610; 85730; 87086; 93005; 93010; 93306; 93458; 94760; 99152; A4216; C1769; J1200; J1644; J1940; J2001; J2250; J3010; J7506